=== PATIENT | female | born 1990 | race Caucasian/White ===

== ENCOUNTER 2018-03-22 11:18 | Emergency (ER) | payer MEDICAID ==
[~2018-03-22] VITALS: Ht 165.1 cm; Wt 65.4 kg
[2018-03-22 11:37] VITALS: BP 105/63
== END 2018-03-22 12:54 | disposition home or self-care (01) ==
LOC: ED 12:30
DX: K02.9 Dental caries, unspecified (principal); K08.89 Other specified disorders of teeth and supporting structures
CPT/HCPCS: 99283